=== PATIENT | female | born 1940 | race Caucasian/White ===

== ENCOUNTER → 2017-01-22 | Outpatient (CLI) | payer MEDICARE, BC ==
[~2017-01-22] MED LIST: CALC3.7S5 NAS; CEPH-368 PO; CHOL2000 PO; CYCL-259 PO; DOCU-30 PO; IBUP-1222 PO; KRIL500C PO; LEVO25TA2 PO; LIDOCAINE 1%, 20ML ONE; MULT-6 PO; OXYC1TAB7 PO; SODIUM BICARBONATE 4.2%, 5ML ONE; UBID60CA2 PO; VITAMIN D3 PO
== END | disposition home or self-care (01) ==
LOC: RAD 08:25 → EDSTATUS 09:00
PROVIDERS: ATTEND Internal Medicine Endocrinology, Diabetes & Metabolism
DX: E07.9 Disorder of thyroid, unspecified (principal)
CPT/HCPCS: 76942; 88172; 88173; J3490

== ENCOUNTER → 2017-10-27 | Outpatient (CLI) | payer MEDICARE, BC ==
[~2017-10-27] MED LIST changes: +DOCU-131 PO; -DOCU-30 PO; -LIDOCAINE 1%, 20ML ONE; -SODIUM BICARBONATE 4.2%, 5ML ONE
== END | disposition home or self-care (01) ==
LOC: CVU 07:35
PROVIDERS: ATTEND Internal Medicine Cardiovascular Disease
DX: K21.9 Gastro-esophageal reflux disease without esophagitis (principal); I83.91 Asymptomatic varicose veins of right lower extremity; I87.2 Venous insufficiency (chronic) (peripheral); I83.92 Asymptomatic varicose veins of left lower extremity
CPT/HCPCS: 93970

== ENCOUNTER 2017-11-23 13:11 | Day surgery (SDC) | payer MEDICARE, BC ==
[~2017-11-23] VITALS: Ht 165.1 cm; Wt 68.2 kg
[~2017-11-23 13:11] MED LIST changes: +LIDOCAINE/MPF 2%-EPI 1:200K, 20 ML ONE
[2017-11-23 13:55] VITALS: BP 115/58
[2017-11-23] MEDS ORDERED: LIDOCAINE 2%, 20ML ONE (14:35)
== END 2017-11-23 16:01 | disposition home or self-care (01) ==
LOC: CACL 13:11
PROVIDERS: ATTEND Internal Medicine Cardiovascular Disease
DX: I83.812 Varicose veins of left lower extremity with pain (principal); E78.2 Mixed hyperlipidemia; Z88.8 Allergy status to other drugs, medicaments and biological substances
CPT/HCPCS: 36475; C1894; J3490

== ENCOUNTER → 2017-11-25 | Outpatient (CLI) | payer MEDICARE, BC ==
[~2017-11-25] MED LIST changes: -LIDOCAINE/MPF 2%-EPI 1:200K, 20 ML ONE
== END | disposition home or self-care (01) ==
LOC: CVU 13:20
PROVIDERS: ATTEND Internal Medicine Cardiovascular Disease
DX: I87.2 Venous insufficiency (chronic) (peripheral) (principal)
CPT/HCPCS: 93971

== ENCOUNTER 2018-01-10 12:25 | Day surgery (SDC) | payer MEDICARE, BC ==
[~2018-01-10] VITALS: Ht 165.1 cm; Wt 68.2 kg
[2018-01-10 12:57] VITALS: BP 134/69
[2018-01-10] MEDS ORDERED: SODIUM BICARBONATE 1 MEQ/ML, 50ML VIAL ONE (13:08)
[2018-01-10] MEDS ORDERED: LIDOCAINE 2%, 10ML ONE (13:15)
== END 2018-01-10 14:43 ==
LOC: CVU 12:25
PROVIDERS: ATTEND Internal Medicine Cardiovascular Disease
DX: I83.11 Varicose veins of right lower extremity with inflammation (principal); E03.9 Hypothyroidism, unspecified
CPT/HCPCS: 36475; C1894; J3490

== ENCOUNTER 2018-07-25 19:53 | Emergency (ER) | payer MEDICARE, BC ==
[~2018-07-25] VITALS: Ht 165.1 cm; Wt 73.8 kg
[2018-07-25 20:29] VITALS: BP 114/51
== END 2018-07-25 21:03 | disposition home or self-care (01) ==
LOC: ED 20:57
DX: R60.0 Localized edema (principal); E03.9 Hypothyroidism, unspecified; Z95.0 Presence of cardiac pacemaker
CPT/HCPCS: 99284